=== PATIENT | male | born 1965 | race Two or more races ===

== ENCOUNTER → 2016-08-04 | Outpatient (CLI) | payer BC ==
[2016-08-04 08:34] LABS: Basophils # (A) 0.1 k/uL (0-0.2); Basophils % (A) 1 %; CH 31.3; CHCM 35.2; Eosinophils # (A) 0.2 k/uL (0-0.7); Eosinophils % (A) 4 %; HCT 49.1 % (39.0-53.0); HDW 2.92; HGB 16.5 gm/dL (13.0-17.5); Luc # (Auto) 0.21; Luc % (Auto) 3; Lymphocytes # (A) 1.5 k/uL (1.0-4.8); Lymphocytes % (A) 24 %; MCH 30.1 pg (25.0-35.0); MCHC 33.7 g/dL (31.0-37.0); MCV 89.4 fL (80.0-100.0); Mean Platelet Volume 7.1; Monocytes # (A) 0.4 k/uL (0-1.0); Monocytes % (A) 7 %; Neutrophils # (A) 3.9 k/uL (1.3-7.7); Neutrophils % (A) 62 %; RBC 5.49 m/uL (4.30-5.90); WBC 6.4 k/uL (3.8-10.6); WBC (Perox) 6.38
[2016-08-04 12:56] LABS: ALT 59 U/L (21-72); AST 24 U/L (17-59); Alkaline Phosphatase 94 U/L (38-126); Anion Gap 15 mmol/L; Blood Urea Nitrogen 17 mg/dL (9-20); Calcium 9.9 mg/dL (8.4-10.2); Carbon Dioxide 25 mmol/L (22-30); Chloride 102 mmol/L (98-107); Cholesterol 148 mg/dL (<200); Glucose 304 mg/dL (74-99); HDL Cholesterol 38 mg/dL (40-60); Non-African American GFR(MDRD) >60 (>60 ml/min/1.73 sqM); Potassium 4.2 mmol/L (3.5-5.1); Sodium 142 mmol/L (137-145); Total Bilirubin 0.7 mg/dL (0.2-1.3); Total Protein 6.9 g/dL (6.3-8.2); Triglycerides 198 mg/dL (<150); Uric Acid 5.1 mg/dL (3.5-8.5)
[2016-08-04 13:21] LABS: Prostate Specific Antigen 0.88 ng/mL (0.00-4.00)
== END | disposition home or self-care (01) ==
LOC: LABWHC1 07:40
PROVIDERS: ATTEND Surgery
DX: E78.00 Pure hypercholesterolemia, unspecified (principal)
CPT/HCPCS: 36415; 80053; 80061; 82306; 83036; 84153; 84403; 84439; 84443; 84550; 85025

== ENCOUNTER → 2018-02-16 | Outpatient (CLI) | payer BC ==
--- NOTE | 2018-02-16 22:44 | MR ---
EXAMINATION TYPE: MR knee LT wo con DATE OF EXAM: 02/16/2018 COMPARISON: NONE HISTORY: LEFT KNEE PAIN per order. Medial pain and swelling for 2 years. TECHNIQUE: Multiplanar, multisequence images of the knee is performed without IV contrast. FINDINGS: Exam slightly suboptimal as there is motion artifact present. MEDIAL MENISCUS: Anterior horn is intact without tear. Oblique increased signal posterior horn medial meniscus extending to inferior articular surface sagittal image 27, vertical signal is seen coronal image 28. LATERAL MENISCUS: Anterior and posterior horns are intact without tear. CRUCIATE LIGAMENTS: The anterior and posterior cruciate ligaments are intact. Increased signal and th inning of the anterior cruciate ligament especially inferior distal fibers is noted. COLLATERAL LIGAMENTS: The medial collateral ligament and lateral collateral ligament complex are inta ct and unremarkable. EXTENSOR MECHANISM: Visualized quadriceps and patellar tendons are intact. EFFUSION: Moderate to large size suprapatellar joint effusion. POPLITEAL CYST: No popliteal/dean cyst. TRICOMPARTMENT SPACES: Moderate to severe joint space loss with mild to moderate spurring patellofem oral compartment. Mild to moderate narrowing with mild spurring medial greater than lateral tibiofemo ral compartments. CARTILAGE: There is evidence of chondromalacia patella with full-thickness cartilaginous loss along s uperior medial aspect of the posterior patellar pole. BONE MARROW SIGNAL: Some early reactive changes and posterior patellar pole are identified with foci of T2 hyperintensity. OTHER: No additional significant abnormality is appreciated. IMPRESSION: 1. Full thickness vertical tear posterior horn medial meniscus. 2. Moderate to large-sized suprapatellar joint effusion. 3. Tricompartment degenerative changes with moderate to advanced patellofemoral compartment findings noted as there is full-thickness chondromalacia patella present. 4. Myxoid degeneration ACL.
== END ==
LOC: RADMRIMAIN 16:51
PROVIDERS: ATTEND Surgery
DX: M25.562 Pain in left knee (principal); S83.242A Other tear of medial meniscus, current injury, left knee, initial encounter; M17.11 Unilateral primary osteoarthritis, right knee; M22.42 Chondromalacia patellae, left knee

== ENCOUNTER → 2019-06-07 | Outpatient (CLI) | payer BC ==
[2019-06-07 16:13] LABS: African American GFR (CKD) 72.2 (60.0-200.0); Albumin 4.6 g/dL (3.80-4.90); Albumin/Globulin Ratio 2.3 (1.60-3.17); BUN/Creat Ratio 16.92 Ratio (12.00-20.00); Chol/HDL Ratio 3.42; LDL Cholesterol,Calculated 88.6 mg/dL (0.0-131.0); Non-African American GFR(CKD) 62.3 (60.0-200.0); Potassium 4.7 mmol/L (3.5-5.5); Total Bilirubin 0.6 mg/dL (0.2-1.2); Total Protein 6.6 g/dL (6.2-8.2); Uric Acid 9.9 mg/dL (3.7-8.7); VLDL Calculation 20.4 mg/dL (5.00-40.00)
[2019-06-07 18:12] LABS: Hemoglobin A1C 5.2 % (4.0-6.0)
== END | disposition home or self-care (01) ==
LOC: LABWHC1 07:52
PROVIDERS: ATTEND Surgery
DX: Z00.00 Encounter for general adult medical examination without abnormal findings (principal)
CPT/HCPCS: 36415; 80053; 80061; 82306; 82607; 83036; 84153; 84403; 84550

== ENCOUNTER → 2020-06-10 | Outpatient (CLI) | payer BC ==
[2020-06-10 10:34] LABS: HCT 48.5 % (39.6-50.0); HGB 16.2 g/dL (13.0-17.0); MCH 31.2 pg (27.0-32.0); MCHC 33.4 g/dL (32.0-37.0); MCV 93.3 fL (80.0-97.0); Mean Platelet Volume 10.3 fL (9.5-12.2); Platelet Count 236 X 10*3/uL (140-440); RDW 12.5 % (11.5-14.5); WBC 10.29 X 10*3/uL (4.50-10.00)
[2020-06-10 10:42] LABS: Estradiol 31.5 pg/mL
[2020-06-10 10:46] LABS: African American GFR (CKD) 65.5 (60.0-200.0); Albumin 4.6 g/dL (3.80-4.90); Albumin/Globulin Ratio 2.42 (1.60-3.17); Anion Gap 7.4 mmol/L (4.00-12.00); BUN/Creat Ratio 23.57 Ratio (12.00-20.00); Carbon Dioxide 27.6 mmol/L (21.6-31.8); Chol/HDL Ratio 2.9; Globulin 1.9 g/dL (1.6-3.3); LDL Cholesterol,Calculated 75.8 mg/dL (0.0-131.0); Non-African American GFR(CKD) 56.6 (60.0-200.0); PSA Annual Screen 1.1 ng/mL (0.0-4.0); Potassium 4.4 mmol/L (3.5-5.5); Total Bilirubin 0.7 mg/dL (0.2-1.2); Total Protein 6.5 g/dL (6.2-8.2); Uric Acid 7.9 mg/dL (3.7-8.7); VLDL Calculation 21.2 mg/dL (5.00-40.00)
[2020-06-10 10:56] LABS: Calcium 9.6 mg/dL (8.7-10.3)
[2020-06-11 12:07] LABS: Growth Hormone, Human 1.1 ng/mL (<10)
== END ==
LOC: LABWHC1 07:47
PROVIDERS: ATTEND Surgery
DX: E78.00 Pure hypercholesterolemia, unspecified (principal); E55.9 Vitamin D deficiency, unspecified; R73.9 Hyperglycemia, unspecified; Z12.5 Encounter for screening for malignant neoplasm of prostate
CPT/HCPCS: 84140; 83695; 84305; 80061; 80053; 82626; 82607; 82672; 82670; 83003; 84550; 85027; 84402; 84403; 83525; 82306; 83036; 36415; G0103

== ENCOUNTER → 2020-09-06 | Outpatient (CLI) | payer BC ==
[2020-09-06 15:44] LABS: African American GFR (CKD) 87.7 (60.0-200.0); BUN/Creat Ratio 25.45 Ratio (12.00-20.00); Calcium 9.3 mg/dL (8.7-10.3); Carbon Dioxide 25.6 mmol/L (21.6-31.8); Chloride 105 mmol/L (96-109); Glucose 80 mg/dL (70-110); Non-African American GFR(CKD) 75.7 (60.0-200.0); Potassium 4.5 mmol/L (3.5-5.5); Sodium 140 mmol/L (135-145)
[2020-09-06 15:52] LABS: Estradiol 21.9 pg/mL
[2020-09-06 15:55] LABS: Folate, Serum >24.0 ng/mL
[2020-09-06 17:45] LABS: Hemoglobin A1C 5.4 % (4.0-6.0)
== END | disposition home or self-care (01) ==
LOC: LABWHC1 09:30
PROVIDERS: ATTEND Surgery
DX: E11.9 Type 2 diabetes mellitus without complications (principal); E34.9 Endocrine disorder, unspecified; E29.1 Testicular hypofunction
CPT/HCPCS: 36415; 80048; 82040; 82306; 82607; 82626; 82670; 82672; 82746; 83036; 84270; 84305; 84403; 84443; 84590

== ENCOUNTER → 2020-10-01 | Outpatient (CLI) | payer BC | END | disposition home or self-care (01) | LOC: LABWHC1 07:47 | PROVIDERS: ATTEND Surgery | DX: E29.1 Testicular hypofunction (principal); E55.9 Vitamin D deficiency, unspecified | CPT/HCPCS: 36415; 82040; 82306; 84270; 84403 ==

== ENCOUNTER → 2020-11-08 | Outpatient (CLI) | payer BC | END | disposition home or self-care (01) | LOC: LABWHC1 08:05 | PROVIDERS: ATTEND Surgery | DX: E29.1 Testicular hypofunction (principal) | CPT/HCPCS: 36415; 82040; 84270; 84403 ==

== ENCOUNTER → 2020-11-18 | Outpatient (CLI) | payer BC ==
[2020-11-19 14:48] LABS: Estrogens Total 281 pg/mL
== END | disposition home or self-care (01) ==
LOC: LABWHC1 08:41
PROVIDERS: ATTEND Surgery
DX: E29.1 Testicular hypofunction (principal)
CPT/HCPCS: 36415; 82040; 82670; 82672; 84270; 84403

== ENCOUNTER → 2020-12-25 | Outpatient (CLI) | payer BC ==
[2020-12-25 12:21] LABS: HCT 50.8 % (39.6-50.0); HGB 16.4 g/dL (13.0-17.0); MCH 29.2 pg (27.0-32.0); MCHC 32.3 g/dL (32.0-37.0); MCV 90.4 fL (80.0-97.0); Mean Platelet Volume 10.4 fL (9.5-12.2); Platelet Count 247 X 10*3/uL (140-440); RBC 5.62 X 10*6/uL (4.40-5.60); RDW 13.2 % (11.5-14.5); WBC 7.43 X 10*3/uL (4.50-10.00)
[2020-12-25 18:02] LABS: Albumin 4.5 g/dL (3.80-4.90); Albumin/Globulin Ratio 2.05 (1.60-3.17); BUN/Creat Ratio 18.33 Ratio (12.00-20.00); Calcium 9.4 mg/dL (8.7-10.3); Chol/HDL Ratio 3.25; Globulin 2.2 g/dL (1.6-3.3); LDL Cholesterol,Calculated 76.6 mg/dL (0.0-131.0); Non-African American GFR(CKD) 68.1 (60.0-200.0); Potassium 4.5 mmol/L (3.5-5.5); Total Bilirubin 0.4 mg/dL (0.3-1.2); Total Protein 6.7 g/dL (6.2-8.2); VLDL Calculation 13.4 mg/dL (5.00-40.00)
[2020-12-25 18:11] LABS: Estradiol 35.8 pg/mL
[2020-12-25 18:28] LABS: Hemoglobin A1C 5.4 % (4.0-6.0)
[2020-12-29 11:14] LABS: Albumin, LC/MS/MS 4.1 g/dL (3.6-5.1); Testosterone, Free, LC/MS/MS 274.5 pg/mL (46.0-224.0)
== END | disposition home or self-care (01) ==
LOC: LABWHC1 08:02
PROVIDERS: ATTEND Surgery
DX: E29.1 Testicular hypofunction (principal); E11.9 Type 2 diabetes mellitus without complications
CPT/HCPCS: 36415; 80053; 80061; 82040; 82642; 82670; 82672; 83036; 84270; 84403; 85027

== ENCOUNTER → 2021-04-15 | Outpatient (CLI) | payer BC ==
--- NOTE | 2021-04-15 13:57 | MR ---
EXAMINATION TYPE: MR shoulder RT wo con DATE OF EXAM: 04/15/2021 1:44 PM COMPARISON: NONE HISTORY: Rotator cuff tear, Right shoulder pain TECHNIQUE: Multiplanar multispin echo imaging of the right shoulder was performed. FINDINGS: Rotator cuff : There is thickening and heterogeneity of the supraspinatus tendon compatible chronic t endinopathy. Partial intrasubstance tears noted. No evidence for full-thickness tear. Remaining const ituents of the rotator cuff are grossly intact. Bursa: No bursal effusion or thickening is seen. Musculature: There is no muscular tear, contusion, or atrophy. Acromioclavicular joint : Moderate AC joint arthropathy. Small subacromial spur resulting in impingem ent. Osseous structures : Bone marrow edema and severe degenerative narrowing involving the humeral head a nd glenoid. Humeral spur formation seen. Long biceps tendon : Fluid along the biceps tendon sheath. The biceps tendon is normally situated wi thin the bicipital groove. No complete or partial biceps tendon tear is present. Glenohumeral Joint fluid : There is no glenohumeral joint effusion. Cartilage and Bone : No focal hyaline cartilage defects are noted. No Hill-Sachs, reverse Hill-Sachs, or bony Bankart lesions are seen. Labrum : There are no SLAP or soft tissue Bankart lesions. No paralabral cysts are seen. OTHER FINDINGS : none IMPRESSION: 1. Chronic tendinopathy supraspinatus tendon with intrasubstance tears noted. No evidence for full-th ickness tear. 2. Severe degenerative glenohumeral joint space narrowing with associated spur formation and subchond ral cyst.
== END | disposition home or self-care (01) ==
LOC: RADMRIMAIN 12:11
PROVIDERS: ATTEND Surgery
DX: M75.111 Incomplete rotator cuff tear or rupture of right shoulder, not specified as traumatic (principal); M67.813 Other specified disorders of tendon, right shoulder; M19.011 Primary osteoarthritis, right shoulder